=== PATIENT | male | born 1980 | race Caucasian/White ===

== ENCOUNTER 2016-04-25 16:10 | Emergency (ER) | payer OTHER ==
--- NOTE | ~2016-04-25 | CT98 ---
[facility] A Service of [facility] RADIOLOGY TEXT RESULTS PATIENT: FABIO BAL LOCATION: [facility] : [birth year] UNIT #: [id number] AGE: [address]: Tomasa Landers MD SEX: M ORDER DR: [id number] [facility] [address] [place], [place] [address] [id number] E MR#: [id number] Acc #: [id number] NAME: FABIO BAL. : 1980 SEX: M STUDY DATE/TIME: 04/25/2016 15:47 UNIT: [facility] ROOM: STUDY DESCRIPTION: CT Lumbar Spine Wo Cont Attending Physician: Tomasa Landers M.D. Ordering Physician: Tomasa Landers M.D. Primary Care Physician: Primary Care Physician No MEDICAL IMAGING REPORT This report is preliminary unless electronic signature is present EXAM Lumbar spine CT, 04/25/2016 HISTORY Patient fell off the roof at work 1 hour ago with right-sided back pain. TECHNIQUE Axial imaging was obtained from the lower thoracic spine to the sacrum and evaluated at bone and soft tissue windows with multiplanar reformats. This CT exam was performed with one or more of the following radiation dose reduction techniques: automatic exposure control, adjustment of mA and/or kV according to patient size, and iterative reconstruction. FINDINGS Alignment is satisfactory. Disc space heights are preserved and there is no evidence of disc bulging or disc herniation. No pars defects or fractures are noted. The spinous processes and transverse processes are intact. No paraspinous masses or fluid collections are seen. IMPRESSION Normal. Dictated by... Luis Angel Pereira M.D. THIS IS AN ELECTRONICALLY VERIFIED REPORT Luis Angel Pereira M.D. at 04/26/2016 8:20 AM [facility] A Service of [facility] RADIOLOGY TEXT RESULTS PATIENT: FABIO BAL LOCATION: [facility] : 82 UNIT #: [id number] AGE: [address]: Tomasa Landers MD SEX: M ORDER DR: TD: 04/26/2016 05:26 JOB #: [id number] MEDICAL IMAGING REPORT COPY
== END 2016-04-25 18:15 | disposition home or self-care (01) ==
LOC: CED 16:10
DX: S30.0XXA Contusion of lower back and pelvis, initial encounter (principal); F17.210 Nicotine dependence, cigarettes, uncomplicated; W13.2XXA Fall from, out of or through roof, initial encounter; Y92.69 Other specified industrial and construction area as the place of occurrence of the external cause; Y99.0 Civilian activity done for income or pay
CPT/HCPCS: 72131; 99284; J2270; J2405